=== PATIENT | female | born 1965 | race Caucasian/White ===

== ENCOUNTER → 2016-12-30 | Outpatient (CLI) | payer BC ==
--- NOTE | 2016-12-30 15:55 | CR ---
EXAMINATION: Right ankle HISTORY: Pain COMPARISON: 12/26/2016 TECHNIQUE: Single stress view FINDINGS/IMPRESSION: Minimal widening of the ankle mortise most prominent medially with stress. The distal fibular fracture again noted. Moderate overlying soft tissue swelling.
== END ==
LOC: MW.CHORTHO 07:29
PROVIDERS: ATTEND Physician Assistant
DX: M25.571 Pain in right ankle and joints of right foot (principal); M79.89 Other specified soft tissue disorders
CPT/HCPCS: 77071-26-RT; 77071-RT

== ENCOUNTER 2016-12-31 09:21 | Day surgery (SDC) | payer BC ==
[~2016-12-31 09:21] MED LIST: Bupivacaine 0.25% 10 ML SDV ONE; Ketorolac 30 MG/ML SDV ONE; Lactated Ringers 1,000 ML IV SCH; Midazolam 1 MG/ML 2 ML SDV ONE; Ondansetron 4 MG/2 ML SDV ONE; Propofol 200 MG/20 ML SDV ONE; ceFAZolin 2 GM in Premix Bag 1 BAG IV SCH; fentaNYL 250 MCG/5 ML SDV ONE
--- NOTE | 2016-12-31 10:02 | PCM.PREANE ---
Preanesthetic Assessment - Anesthesia/Transfusion/Family Hx Anesthesia History: Prior Anesthesia Without Reaction Family History of Anesthesia Reaction: No Transfusion History: No Prior Transfusion(s) - Review of Systems General: No Symptoms Pulmonary: No Symptoms Cardiovascular: No Symptoms Gastrointestinal: No symptoms Neurological: No Symptoms Other: Reports: None - Physical Assessment NPO Status Date: 12/30/16 Height: 1.73 m Weight: 97.522 kg ASA Class: 2 Mental Status: Alert & Oriented x3 Airway Class: Mallampati = 2 Dentition: Reports: Normal Dentition ROM/Head Extension: Full Lungs: Clear to auscultation, Normal respiratory effort Cardiovascular: Regular Rate, Regular Rhythm - Allergies Allergies/Adverse Reactions: Allergies Allergy/AdvReac Type Severity Reaction Status Date / Time No Known Allergies Allergy Verified 12/30/16 14:13 - Blood Blood Available: No - Anesthesia Plan Pre-Op Medication Ordered: None - Acknowledgements Anesthesia Type Planned: General Anesthesia Pt an Appropriate Candidate for the Planned Anesthesia: Yes Alternatives and Risks of Anesthesia Discussed w Pt/Guardian: Yes Pt/Guardian Understands and Agrees with Anesthesia Plan: Yes Additional Comments: problem list: htn, fibromyalgia, IBS, smoker. Plan GET/LMA. K and preg test pending. 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 Musculoskeletal History: Reports: Fracture, Fibromyalgia Other Musculoskeletal History: hx of fx left ankle (has plate and screws), right wrist and fingers, repair of 4 hammer toes and bunion (right) Neurological History: Reports: None Psychiatric History: Reports: Depression, PTSD Endocrine/Metabolic History: Reports: Obesity/BMI 30+ Hematologic History: Reports: B12 Deficiency Immunologic History: Reports: None Oncologic (Cancer) History: Reports: None Dermatologic History: Reports: None - Past Surgical History Head Surgeries/Procedures: Reports: None HEENT Surgical History: Reports: Cataract Surgery Cardiovascular Surgical History: Reports: None Respiratory Surgical History: Reports: None GI Surgical History: Reports: Bariatric Procedure Female Surgical History: Reports: None Endocrine Surgical History: Reports: None Neurological Surgical History: Reports: None Musculoskeletal Surgical History: Reports: ORIF, Other (See Below) Other Musculoskeletal Surgeries/Procedures:: hx of ORIF left ankle, right wrist and fingers, Hx of repair of 4 hammer toes and right bunionectomy Oncologic Surgical History: Reports: None - SUBSTANCE USE Smoking Status *Q: Former Smoker Recreational Drug Use History: No - HOME MEDS Home Medications: Home Meds Cyanocobalamin (Vitamin B-12) [Cyanocobalamin Injection] 1,000 mcg IM ASDIRECTED 12/30/16 [History] Escitalopram Oxalate 20 mg PO DAILY 12/30/16 [History] Furosemide 40 mg PO DAILY 12/30/16 [History] Hydrochlorothiazide 25 mg PO DAILY 12/30/16 [History] LORazepam [Ativan] 0.5 mg PO DAILY PRN 12/30/16 [History] Losartan Potassium 50 mg PO DAILY 12/30/16 [History] Meloxicam 15 mg PO DAILY 12/30/16 [History] Milnacipran HCl [Savella] 50 mg PO BID 12/30/16 [History] Zolpidem [Ambien] 10 mg PO BEDTIME PRN 12/30/16 [History] buPROPion HCl [Wellbutrin Xl] 300 mg PO DAILY 12/30/16 [History] hydrOXYzine Pamoate [Hydroxyzine Pamoate] 50 mg PO QID 12/30/16 [History] traMADol HCl [Tramadol HCl] 50 mg PO BID PRN 12/30/16 [History] - CURRENT (IN HOUSE) MEDS Current Meds: Current Medications Hydrocodone Bitart/Acetaminophen ([place] 325-10 Mg) 1 - 2 tab PO Q4H PRN PRN Reason: Pain Lactated Ringer's (Ringers, Lactated) 1,000 mls @ 100 mls/hr IV ASDIRECTED [facility] Cefazolin Sodium/Dextrose 2 gm (/ Premix) 50 mls @ 100 mls/hr IV ONCALL [place] Discontinued Medications Bupivacaine HCl (Sensorcaine-Mpf 0.25%) Confirm Administered Dose 10 ml .ROUTE .STK-MED ONE Stop: 12/31/16 07:48 Fentanyl (Sublimaze) Confirm Administered Dose 250 mcg .ROUTE .STK-MED ONE Stop: 12/31/16 09:11 Ketorolac Tromethamine (Toradol) Confirm Administered Dose 30 mg .ROUTE .STK- MED ONE Stop: 12/31/16 09:20 Midazolam HCl (Versed 1 Mg/Ml) Confirm Administered Dose 2 mg .ROUTE .STK-MED ONE Stop: 12/31/16 09:10 Ondansetron HCl (Zofran) Confirm Administered Dose 4 mg .ROUTE .STK-MED ONE Stop: 12/31/16 09:10 Propofol (Diprivan 20 Ml) Confirm Administered Dose 200 mg .ROUTE .STK-MED ONE Stop: 12/31/16 09:10
[2016-12-31] MEDS ORDERED: ceFAZolin 1 GM Vial ONE (10:31)
[2016-12-31] MEDS ORDERED: HYDROmorphone 2 MG/ML Syringe ONE (10:40)
[2016-12-31] MEDS ORDERED: fentaNYL 100 MCG/2 ML SDV IVPUSH PRN (10:48)
[2016-12-31] MEDS ORDERED: Ketorolac 30 MG/ML SDV ONE (10:55)
--- NOTE | 2016-12-31 11:17 | PCM.OPNOTE ---
- General Post-Op/Procedure Note Date of Surgery/Procedure: 12/31/16 Operative Procedure(s): ORIF R distal fibula Post-Op Diagnosis: R distal fibula fracture Anesthesia Technique: General ET tube Primary Surgeon: Daphne Savage Tool Pusher: Earnest Ponce in mLs: 10 Condition: Good Free Text/Narrative:: tt=27 min #[id number]
[2016-12-31] MEDS: Acetaminophen/HYDROcodone 325-10 MG Tab PO PRN ×2 (12:15→13:44)
--- NOTE | 2016-12-31 12:48 | PCM48HPAN ---
Post Anesthesia Note - EVALUATION WITHIN 48HRS OF ANESTHETIC Vital Signs in Normal Range: Yes Patient Participated in Evaluation: Yes Respiratory Function Stable: Yes Airway Patent: Yes Cardiovascular Function Stable: Yes Hydration Status Stable: Yes Pain Control Satisfactory: Yes Nausea and Vomiting Control Satisfactory: Yes Mental Status Recovered: Yes
--- NOTE | 2016-12-31 12:49 | PCM.POSTAN ---
POST ANESTHESIA ASSESSMENT - MENTAL STATUS Mental Status: alert, oriented - RESPIRATORY Respiratory Status: respiratory rate WNL, airway patent, O2 saturation stable - CARDIOVASCULAR CV Status: pulse rate WNL, blood pressure stable - GASTROINTESTINAL GI Status: no symptoms - POST OP HYDRATION Hydration Status: adequate & stable
[2016-12-31 14:20] VITALS: BP 106/62
--- NOTE | 2016-12-31 14:29 | OR ---
SURGEON: Daphne Savage MD DATE OF PROCEDURE: 12/31/2016 PREOPERATIVE DIAGNOSIS: Right bimalleolar ankle fracture. POSTOPERATIVE DIAGNOSIS: Right bimalleolar ankle fracture. PROCEDURE: Open reduction and internal fixation, right distal fibula. HEEL SEAT POUNDER: Earnest Ponce PA-C. ANESTHESIA: General. ESTIMATED BLOOD LOSS: 10 mL. TOURNIQUET TIME: 27 minutes. COMPLICATIONS: None. DVT PROPHYLAXIS: Not indicated. IMPLANTS USED: Geismar 4 hole distal fibular plate with combination of 3.5 mm locking and nonlocking screws. BRIEF HISTORY: Joi is a 51-year-old female, who tripped over her dog, injuring her right ankle. She complained of immediate pain. She was evaluated in clinic. She was found to have a bimalleolar ankle fracture. The fibula did appear to be shortened. Due to the unstable nature of the injury, I did recommend surgical intervention. The risks and goals of procedure were discussed with the patient and were documented preoperatively. She agreed to proceed. DESCRIPTION OF PROCEDURE: The patient was properly identified and brought to the operating room. She was transferred from the OR cart and placed on the operating table in supine position. General anesthesia was administered. After adequate anesthesia was obtained, a well-padded tourniquet was applied to the right lower extremity. The right lower extremity was then prepped in standard fashion using ChloraPrep solution. It was then sterilely draped. A time-out was performed to ensure correct site and procedure. Preoperative antibiotics were given. The surgical site had been marked preoperatively. An Esmarch was used to exsanguinate the right lower extremity and the tourniquet was inflated to 250 mmHg. An incision was made over the lateral aspect of the ankle. The subcutaneous tissues were incised. She did have abundant soft tissue coverage overlying the distal fibula. Superficial peroneal nerve was not encountered. The fracture site was identified. It was copiously irrigated with saline solution to remove the fracture hematoma. A bone clamp was then used to reduce the fracture. As it was held in a reduced position, an interfragmentary screw was placed in standard lag fashion. This provided good provisional fixation of the fracture. I elected to proceed with the 4-hole distal fibula plate as the 3-hole plate was not available. This contoured well to her bone. C-arm imaging was used to confirm acceptable placement on the distal fibula. A 3.5 mm nonlocking screws were used proximally. I initially used a 3.5 mm nonlocking screw in the most distal hole to help contour the plate to the bone. This was then removed and replaced with a locking screw. Final C-arm images confirmed good reduction of the fracture. There was no evidence of syndesmosis instability with either an external rotation stress test under live fluoroscopy or with a lateral pull using a bone hook under live fluoroscopy. It was noted on the lateral view that the interfragmentary screw was quite long. This was removed and a 3.5 mm nonlocking screw was placed into the plate in that position. There was no change in position of the fracture. Final C-arm images confirmed good reduction of the distal fibula with adequate length. The ankle mortise remained well preserved. The wound was copiously irrigated with saline solution. The deep tissues were closed over the plate using 0 Vicryl. 2-0 Monocryl was used to close subcutaneous tissues. Cordell were used to close skin. The tourniquet was deflated prior to final wound closure and no excess bleeding was noted. Xeroform gauze was placed over the wound and a bulky dressing was applied. She was placed in a well-padded posterior splint with medial and lateral stabilizing slabs. She was awakened from her anesthetic and transferred back to the operating room cart. She was brought to recovery room in stable condition. All needle and sponge counts were correct. NATALIYA / CESIA /[id number]
--- NOTE | 2016-12-31 16:05 | CR ---
EXAMINATION: Right ankle HISTORY: ORIF COMPARISON: 12/30/2016 TECHNIQUE: 5 views FINDINGS/IMPRESSION: Operative control films demonstrate screw and plate hardware fixating a distal fibular fracture.
== END 2016-12-31 14:00 | disposition home or self-care (01) ==
LOC: MW.SDS 09:21
PROVIDERS: ATTEND Orthopaedic Surgery
PROC: 0QSJ04Z Reposition Right Fibula with Internal Fixation Device, Open Approach (ICD-10-PCS; principal; 2016-12-31)
DX: S82.841A Displaced bimalleolar fracture of right lower leg, initial encounter for closed fracture (principal); M19.90 Unspecified osteoarthritis, unspecified site; F32.9 Major depressive disorder, single episode, unspecified; I10 Essential (primary) hypertension; K58.9 Irritable bowel syndrome, unspecified; E53.8 Deficiency of other specified B group vitamins; F17.210 Nicotine dependence, cigarettes, uncomplicated; M79.7 Fibromyalgia; E66.01 Morbid (severe) obesity due to excess calories; Z79.899 Other long term (current) drug therapy; Z98.84 Bariatric surgery status; Z98.49 Cataract extraction status, unspecified eye; Z68.32 Body mass index [BMI] 32.0-32.9, adult; W01.0XXA Fall on same level from slipping, tripping and stumbling without subsequent striking against object, initial encounter
CPT/HCPCS: 27792; 36415; 76000; 81025; 84132; A9270; C1713; J0690; J1170; J1885; J2250; J2405; J3010; J7120; 01480; J2704